=== PATIENT | male | born 1965 | race African-American/Black ===

== ENCOUNTER 2018-11-28 10:40 | Emergency (ER) | payer MEDICAID ==
[~2018-11-28] VITALS: Ht 185.4 cm; Wt 78.0 kg
[2018-11-28 12:09] LABS: EOSINOPHILS % 1.3 % (0.0-5.0); HEMOGLOBIN. 14.7 g/dL (14.0-18.0); LYMPHOCYTES % 37.8 % (20.0-50.0); MEAN CORPUSCULAR HEMOGLOBIN 30.9 pg (28.0-32.0); MEAN CORPUSCULAR VOLUME 92.4 fL (80.0-94.0); MEAN PLATELET VOLUME 8.1 fl (7.4-10.4); MONOCYTES % 7.9 % (2.0-8.0); PLATELET 245 x1000/uL (130-400); RED BLOOD CELL COUNT 4.76 mill/uL (4.7-6.1); RED CELL DISTRIBUTION WIDTH 16.9 % (11.6-14.6)
[2018-11-28 12:14] LABS: PROTHROMBIN TIME 10.2 sec (9.6-11.0)
[2018-11-28 12:16] LABS: CHLORIDE 107 mEq/L (98-107)
[2018-11-28 12:29] LABS: CLARITY URINE CLEAR (CLEAR); COLOR URINE YELLOW (YELLOW); KETONES URINE NEGATIVE (NEGATIVE); LEUKOCYTE ESTERASE URINE NEGATIVE (NEGATIVE); NITRITE URINE NEGATIVE (NEGATIVE); OCCULT BLOOD URINE TRACE (NEGATIVE); PH URINE 5.5 (4.5-8.0); PROTEIN URINE NEGATIVE (NEGATIVE); SPECIFIC GRAVITY URINE 1.023 (1.005-1.030); UROBILINOGEN URINE 0.2 E.U./dL (0.2-1.0)
[2018-11-28 14:30] VITALS: BP 118/78
== END 2018-11-28 15:03 | disposition home or self-care (01) ==
LOC: ER 11:09
DX: R07.81 Pleurodynia (principal); R10.12 Left upper quadrant pain; M25.512 Pain in left shoulder; R06.7 Sneezing; W01.0XXA Fall on same level from slipping, tripping and stumbling without subsequent striking against object, initial encounter; Y93.01 Activity, walking, marching and hiking; Y92.89 Other specified places as the place of occurrence of the external cause; Y99.8 Other external cause status
CPT/HCPCS: 36415; 71045; 73030; 74177; 99284